=== PATIENT | male | born 1995 | race Caucasian/White ===

== ENCOUNTER 2021-11-12 15:50 | Emergency (ER) | payer OTHER ==
[2021-11-12] MEDS: Bupivacaine 0.25% 10 ML SDV INJECT ONE (16:52)
[2021-11-12] MEDS: Lidocaine 1% 5 ML VIAL INJECT ONE (16:52)
[2021-11-12] MEDS: Bacitracin Oint 1 GM U/D Packet ONE (16:54)
[2021-11-12] MEDS: Diphtheria,Pertussis(Acell),Tetanus Vaccine 0.5 ML Syringe IM ONE (17:28)
== END 2021-11-12 18:00 | disposition home or self-care (01) ==
LOC: MW.ED 15:50
DX: S61.315A Laceration without foreign body of left ring finger with damage to nail, initial encounter (principal); Z23 Encounter for immunization; W26.8XXA Contact with other sharp object(s), not elsewhere classified, initial encounter; Y99.0 Civilian activity done for income or pay
CPT/HCPCS: 11760; 90471; 90715; 99282; J3490

== ENCOUNTER 2021-11-16 14:05 | Emergency (ER) | payer OTHER | END 2021-11-16 14:28 | disposition home or self-care (01) | LOC: MW.ED 14:05 | DX: Z48.01 Encounter for change or removal of surgical wound dressing (principal) | CPT/HCPCS: 99281; 99282 ==